=== PATIENT | male | born 1990 | race Caucasian/White ===

== ENCOUNTER 2023-05-17 16:06 | Emergency (ER) | payer OTHER, SELFPAY ==
[2023-05-17 16:22] VITALS: BP 153/116; PULSE 64; RESP 18; TEMP 36.2; O2SAT 99
--- NOTE | 2023-05-17 16:32 | ED.URI ---
HPI - URI/Sore Throat General Chief Complaint: Upper Respiratory Infection Stated Complaint: Sinus History of Present Illness HPI Narrative: Pt is a 32 y/o, PMhx of HTN, presents to with 5 day hx of sinus pressure, sore throat, left otalgia, fevers and purulent nasal discharge, with minimal cough. He denies known sick contacts or COV exposures. He is taking OTC cold medications without much relief. He has no associated CP, SOB, abdominal pain, NVDC or urinary symptoms. Related Data Allergies Allergy/AdvReac Type Severity Reaction Status Date / Time No Known Allergies Allergy Verified 05/17/23 16:10 Review of Systems Constitutional: Constitutional: Reports as per HPI and Reports no additional constitutional complaints ENT: Reports system reviewed and no additional complaints, except as documented and Reports as per HPI Respiratory: Respiratory: Reports as per HPI and Reports no additional respiratory complaints Exam Const: General: healthy appearing, no acute distress and alert Nutritional Appearance: well nourished Orientation/consciousness: patient oriented x3 Limitations: no limitations Other: voice is slightly muffled, sounds nasally congested when speaking HENMT: Head: normal to inspection Ears: TM abnormal (left TM is bulging, erythematous with purulent effusion. ) other (right TM is bulging but translucent with serous pattern) Face and sinus: normal facial exam and sinus tenderness maxillary Mouth: Yes lip normal, Yes moist mucous membranes and Yes Abnormal oral and palatal mucosa present (exudate noted over posterior pharynx and uvula) Throat: uvula midline (no gross swelling) Other: no tonsil hypertrophy, pharynx patent, no trismus Eyes: Conjunctivae: conjunctivae normal EOM: EOMs intact bilaterally Neck: Neck: lymphadenopathy (anterior cervical nodes are palpable bilaterally) Other: no posterior chain nodes palpable, no nuchal rigidity Resp: Effort & Inspection: normal respiratory effort Auscultation: clear to auscultation bilaterally Cardio: Rate: regular rate Rhythm: regular rhythm Skin: General skin exam: normal color Rashes: no rashes Wounds: no wounds Neuro: General: patient oriented x3, moves all extremities, no meningeal signs, no focal motor deficits and CN's II-XI intact bilaterally Cranial nerves: Yes Nystagmus not present Speech: normal speech Gait exam (Neuro): Normal gait present Extrem: General: normal to inspection Course Course Emergency Course: Plan to treat empirically for left AOM, sinusitis pharyngitis, with PCP FU in 3 days if symptoms are not improving. FU BP check also encouraged, as he is taking antihistamines and this may be falsely elevating his BP however, close monitoring and FU is stressed. Level of Care: Express Care Visit ([id number]) Vital Signs Vital signs: Vital Signs Temperature 36.2 C L 05/17/23 16:22 Pulse Rate 64 05/17/23 16:22 Respiratory Rate 18 05/17/23 16:22 Blood Pressure 153/116 H 05/17/23 16:22 Pulse Oximetry 99 05/17/23 16:22 Oxygen Delivery Room Air 05/17/23 16:22 Temperature 36.2 C L 05/17/23 16:22 Pulse Rate 64 05/17/23 16:22 Respiratory Rate 18 05/17/23 16:22 Blood Pressure 153/116 H 05/17/23 16:22 Pulse Oximetry 99 05/17/23 16:22 Oxygen Delivery Room Air 05/17/23 16:22 MDM - URI/Sore Throat MDM Narrative Medical decision making narrative: Augmentin, OTC probiotic if diarrhea arises, OTC Zyrtec or Claritin and flonase may be added for serous effusion and sinus pressure relief. FU with PCP stressed in 3-5 days if symptoms are not improving. Differential Diagnosis Differential diagnosis: Likely upper respiratory infection, otitis media, sinusitis, viral infection, pharyngitis and other (strep, serous OM) Discharge Plan Discharge Clinical Impression: Exudative pharyngitis Acute suppur left otitis media w/o spontan rupture tympanic membrane Qualifiers: Recurrence: non-recu
[2023-05-17 16:50] VITALS: BP 154/104
== END 2023-05-17 16:50 | disposition home or self-care (01) ==
PROVIDERS: Emergency Provider Nurse Practitioner Family
DX: J02.9 Acute pharyngitis, unspecified (principal); H66.002 Acute suppurative otitis media without spontaneous rupture of ear drum, left ear; H65.01 Acute serous otitis media, right ear
CPT/HCPCS: 99213; G0463